=== PATIENT | male | born 1970 | race Two or more races ===

== ENCOUNTER 2016-09-14 10:15 | Day surgery (SDC) | payer OTHER ==
[2016-09-13 16:48] VITALS: BMI 52.4
[~2016-09-14] VITALS: Ht 160 cm; Wt 58.9 kg
[2016-09-14] VITALS (8 sets, daily range): BP systolic 109–129; BP diastolic 60–85; PULSE 65–92; RESP 12–18; Ht 160 cm; Wt 58.9 kg
[~2016-09-14 10:15] MED LIST: CEFAZOLIN 2 GM/50 ML (PMX) 50 ML IVPB SCH; NALOXONE (0.4 MG/ML) INJ ONE; SOD CHLORIDE 0.9% 1,000 ML IV SCH
[2016-09-14 11:39] LABS: BASOPHILS % 0.5 % (0.0-2.0); EOSINOPHILS # 0.1 10^3/ul (0.0-0.5); EOSINOPHILS % 1.1 % (0.0-7.0); HEMOGLOBIN 15.4 g/dl (14.0-18.0); LYMPHOCYTES # 1.6 10^3/ul (0.8-2.9); LYMPHOCYTES % 25.7 % (15.0-51.0); MEAN CORPUSCULAR HEMOGLOBIN 30.7 pg (29.0-33.0); MEAN CORPUSCULAR HGB CONC 34.2 g/dl (32.0-37.0); MEAN CORPUSCULAR VOLUME 89.8 fl (82.0-101.0); MEAN PLATELET VOLUME 9.2 fl (7.4-10.4); MONOCYTE # 0.4 10^3/ul (0.3-0.9); MONOCYTES % 6.5 % (0.0-11.0); NEUTROPHIL # 4.1 10^3/ul (1.6-7.5); NEUTROPHILS % 66.2 % (39.0-77.0); PLATELET COUNT 198 10^3/UL (140-440); RED BLOOD COUNT 5.01 10^6/ul (4.70-6.10); RED CELL DISTRIBUTION WIDTH 13.1 % (11.5-14.5); UNCORRECTED WBC 6.2 10^3/ul (4.8-10.8); WHITE BLOOD COUNT 6.2 10^3/ul (4.8-10.8)
[2016-09-14 11:41] LABS: CONDITION 1
[2016-09-14 11:43] LABS: CALCIUM 9.4 mg/dl (8.4-10.2); CREATININE 0.68 mg/dl (0.61-1.24); POTASSIUM 4.6 mmol/L (3.5-5.1)
[2016-09-14] MEDS ORDERED: MIDAZOLAM 1 MG/ML 2 ML INJ ONE (12:39)
[2016-09-14] MEDS ORDERED: FENTAnyl 50 MCG/ML VIAL ONE (12:39)
[2016-09-14] MEDS ORDERED: PROPOFOL 20 ML ONE (12:39)
[2016-09-14] MEDS ORDERED: ROCURONIUM 50 MG INJ ONE (12:39)
[2016-09-14] MEDS ORDERED: CEFAZOLIN 1 GM INJ ONE (12:41)
[2016-09-14] MEDS ORDERED: ONDANSETRON 4 MG INJ IV PRN (13:00)
[2016-09-14] MEDS ORDERED: DIPHENHYDRAMINE 50 MG INJ IV PRN (13:00)
[2016-09-14] MEDS ORDERED: morphine (1 MG/ML) 10ML SYRINGE IV PRN ×3 (13:00)
[2016-09-14] MEDS ORDERED: MEPERIDINE 25 MG INJ IV PRN (13:00)
[2016-09-14] MEDS ORDERED: HYDROmorphONE (0.2 MG/ML) 10ML SYG IV PRN ×3 (13:00)
[2016-09-14] MEDS ORDERED: BUPIVACAINE 0.25% (MPF) 30 ML INJ ONE (13:07)
[2016-09-14] MEDS ORDERED: METOCLOPRAMIDE 10 MG INJ ONE (13:44)
[2016-09-14] MEDS ORDERED: ONDANSETRON 4 MG INJ ONE (13:44)
[2016-09-14] MEDS ORDERED: GLYCOPYRROLATE 1 MG INJ ONE (13:44)
[2016-09-14] MEDS ORDERED: NEOSTIGMINE 3 MG/3 ML SYRINGE ONE (13:44)
[2016-09-14] MEDS ORDERED: KETOROLAC 30 MG INJ ONE (13:45)
[2016-09-14] MEDS ORDERED: DEXAMETHASONE 4 MG/ML 1 ML INJ ONE (13:45)
[2016-09-14] MEDS ORDERED: MEPERIDINE 100 MG INJ ONE (13:50)
[2016-09-14] MEDS ORDERED: HYDROCODONE/APAP (5/325) TAB PO ONE (14:00)
--- NOTE | 2016-09-14 15:22 | OPR ---
DATE OF OPERATION: 09/14/2016 INDICATION: This is a 45-year-old male with a posterior neck mass. He requests surgical excision. The risks, alternatives, benefits, and personnel were discussed with the patient. The patient expr essed understanding and consented to the operation. PREOPERATIVE DIAGNOSIS: Posterior neck mass. POSTOPERATIVE DIAGNOSIS: Posterior neck mass. OPERATION PERFORMED: 1. Excision of posterior neck mass, with an 8-cm size incision, and a 8 x 4-cm size mass. 2. Localized adjacent tissue transfer with the use of skin flaps. SURGEON: Dixon Garcia MD SPECIMEN: Neck mass. COMPLICATIONS: None. ANESTHESIA: General. PROCEDURE: The patient was taken to the OR and prepped and draped in the usual sterile fashion. A surgical timeout was performed. IV antibiotics were given. A transverse incision was made with a 1 0 blade over the posterior neck mass. Dissection cautery was carried down to the mass and circumfere ntially excised. There was good hemostasis. Due to the large tissue defect, localized adjacent tis giovani transfer with the use of skin flaps was performed. Multilayer closure with interrupted 3-0 Vicry l and skin dona. Local anesthesia was injected. Dry dressings were applied. Dictated By: DIXON GILLIAM/ALESSANDRO Conf#: [id number] DID#: [id number]
== END 2016-09-14 23:00 | disposition home or self-care (01) ==
LOC: SDS 10:15
PROVIDERS: ATTEND Surgery
DX: D17.0 Benign lipomatous neoplasm of skin and subcutaneous tissue of head, face and neck (principal)
CPT/HCPCS: 14040; 80048; 85025; 88307; J0690; J1100; J1885; J2175; J2250; J2310; J2405; J2710; J2765; J3010; Z7512; Z7610